=== PATIENT | male | born 1965 | race Caucasian/White ===

== ENCOUNTER 2018-10-14 23:52 | Emergency (ER) | payer MEDICARE, MEDICAID ==
[~2018-10-14] VITALS: Wt 81.8 kg
[~2018-10-14 23:52] MED LIST: ATOR-2 PO; BEN50 PO; CLON-379 PO; DESO15CR24 TOP; FURO40TA4 PO; GABA300C16 PO; LISI40TA3 PO; NIFE30TA23 PO; TRAM50TA2 PO; ZOLP5TAB PO
[2018-10-15] MEDS ORDERED: HYDROmorphONE 1 MG/ML SYG IM STA (03:16)
[2018-10-15] MEDS ORDERED: ONDANSETRON (ODT) 4 MG TAB ODT STA (03:16)
--- NOTE | 2018-10-15 03:19 | ERD ---
ER Documentation Chief Complaint Chief Complaint R SIDED BODY PAIN X'S 2 DAYS; HX OF CVA- CHRONIC PAIN HPI This is a 53-year-old male with a history of a stroke leaving him with a right-sided deficit. He says since the stroke he has had chronic right arm and leg pain and he is here because of that pain and he has a left-sided headache for 2 days that is pounding. No new focal neurological complaints. Is also here because he does not have the money to buy his medication he needs refills on his losartan and nifedipine. No chest pain shortness of breath no speech or swallowing difficulty ROS All systems reviewed and are negative except as per history of present illness. Medications Home Meds Active Scripts Diphenhydramine Hcl* (Benadryl*) 50 Mg Cap, 50 MG PO Q6H PRN for ALLERGIC REACTION, #20 CAP Prov:ANYI ADAMS PA-C 05/26/15 Desonide (Desonide) 15 Gm Cream.gm., 1 APPLIC TOP BID for 5 Days Prov:ANYI ADAMS PA-C 05/26/15 Zolpidem Tartrate* (Ambien*) 5 Mg Tablet, 5 MG PO HS PRN for INSOMNIA, #20 TAB Prov:DONOVAN ALEJANDRE 04/23/15 Clonidine Hcl* (Clonidine Hcl*) 0.1 Mg Tab, 0.1 MG PO Q4H PRN for sbp>160, #30 TAB Prov:DONOVAN ALEJANDRE 04/23/15 Reported Medications Tramadol HCl (Tramadol HCl) 50 Mg Tab, 50 MG PO Q6H PRN for PAIN, TAB 04/21/15 Furosemide* (Furosemide*) 40 Mg Tablet, 40 MG PO QAM, TAB 04/21/15 Nifedipine* (Nifedipine ER*) 30 Mg Tablet.sa, 30 MG PO DAILY, TAB.SA 04/21/15 Lisinopril* (Lisinopril*) 40 Mg Tablet, 40 MG PO DAILY, TAB 04/21/15 Atorvastatin* (Atorvastatin*) 80 Mg Tablet, 80 MG PO HS, TAB 04/21/15 Gabapentin* (Gabapentin*) 300 Mg Capsule, 300 MG PO TID, CAP 04/21/15 Allergies Allergies: Coded Allergies: No Known Allergy (Unverified , 05/17/15) PMhx/Soc History of Surgery: No Anesthesia Reaction: No (NKDA) Hx Neurological Disorder: Yes (CVA w/ R side deficits ) Hx Respiratory Disorders: No Hx Cardiac Disorders: Yes (HTN) Hx Psychiatric Problems: No Hx Miscellaneous Medical Probl: Yes (L hemorrahgic stroke, R sided weaknes,htn,high cholesterol) Hx Alcohol Use: No Hx Substance Use: No Hx Tobacco Use: No FmHx Family History: No coronary disease Physical Exam Vitals Vital Signs Date Temp Pulse Resp B/P (MAP) Pulse Ox O2 O2 Flow FiO2 Time Delivery Rate 10/15/18 97.4 64 16 154/86 99 Room Air 03:09 (108) 10/14/18 97.2 65 18 166/86 98 23:59 (112) Physical Exam Const: Well-developed, well-nourished Head: Atraumatic, normocephalic Eyes: Normal Conjunctiva, PERRLA, EOMI, normal sclera, no nystagmus ENT: Normal External Ears, Nose and Mouth, moist mucus membranes. Neck: Full range of motion. No meningismus, no lymphadenopathy. Resp: Clear to auscultation bilaterally, no wheezing, rhonchi, rales Cardio: Regular rate and rhythm, no murmurs, S1 S2 present Abd: Soft, non tender x 4, non distended. Normal bowel sounds, no guarding or rebound, no pulsitile abdominal masses or bruits Skin: No petechiae or rashes, no ecchymosis , no maculopapular rash Back: No midline or flank tenderness Ext: No cyanosis, or edema, FROM x 4, normal inspection, neurovascularly intact x 4 Neur: Awake and alert, right-sided deficit arm and leg weakness 3 out of 5, cerebellum intact Psych: Normal Mood and Affect Results 24 hrs Current Medications Medications Dose Sig/Ramon Start Time Status Last (Trade) Ordered Route PRN Stop Time Admin Dose Reason Admin 1 mg ONCE STAT 10/15/18 DC 10/15/18 Hydromorphone IM 03:16 03:23 HCl 10/15/18 03:18 (Dilaudid) Ondansetron 4 mg ONCE STAT 10/15/18 DC 10/15/18 HCl (Zofran ODT 03:16 03:24 Odt) 10/15/18 03:18 Procedures/MDM Ordering MD: JIM SHERMAN DO Location: E/R Room/Bed: PROCEDURE: CT BRAIN CLINICAL INDICATION: Headache TECHNIQUE: Contiguous axial imaging was performed from the skull base to the vertex without contrast. Coronal and sagittal reformatting was utilized. DICOM images are available. CTDIvol: 39.64 mGy mGy. Total Exam DLP: 634.23 mGy.cm mGy-cm. This CT exam was performed using one or more of the following dose reduction techniques: Automated exposure control, adjustment of the mA and/or kV according to patient size, use of iterative reconstruction technique. COMPARISON: None. FINDINGS: PARENCHYMA: There is prominence of the ventricles and sulci likely reflecting age related involutional changes. Mild to moderate white matter hypodense changes are present likely reflecting microvascular disease. Right basal ganglia and left thalamic lacunar infarcts are noted. EXTRA-AXIAL SPACE: No hemorrhage is seen. VASCULATURE: Slight atherosclerotic calcifications are present. OSSEOUS STRUCTURES: Calvarium is intact. VISUALIZED PARANASAL SINUSES/MASTOID AIR CELLS: Slight bilateral maxillary sinus mucosal thickening is noted. VISUALIZED ORBITAL CONTENTS: Preserved. IMPRESSION: 1. No acute intracranial abnormalities. RPTAT:HGST Fiona Abel Physician Date Time Electronically viewed and signed by Fiona Abel Physician on 10/15/2018 04:29 GT/ CC: JIM SHERMAN DO [id number] Patient's head CT is negative he is feeling better with his pain. The patient's pain is chronic in nature not discharge him home with some pain meds as well as medication refills for his blood pressure Departure Diagnosis: Primary Impression: Headache Headache type: unspecified Headache chronicity pattern: acute headache Intractability: not intractable Qualified Codes: R51 - Headache Additional Impressions: Chronic pain Chronic pain type: other chronic pain Qualified Codes: G89.29 - Other chronic pain Medication refill Condition: Stable JIM SHERMAN DO Oct 15, 2018 03:19
[2018-10-15] MEDS ORDERED: NIFE60TA18 PO (04:36)
[2018-10-15] MEDS ORDERED: LOSA100T15 PO (04:36)
[2018-10-15] MEDS ORDERED: HYDR-3980 PO (04:37)
[2018-10-15 05:16] VITALS: BP 111/65; PULSE 63; RESP 14
== END 2018-10-15 05:27 | disposition home or self-care (01) ==
LOC: E/R 23:52
DX: R51 Headache (principal); G89.29 Other chronic pain; I10 Essential (primary) hypertension; Z76.0 Encounter for issue of repeat prescription; Z86.73 Personal history of transient ischemic attack (TIA), and cerebral infarction without residual deficits
CPT/HCPCS: 70450; 96372; 99285; J1170

== ENCOUNTER 2018-11-09 12:20 | Emergency (ER) | payer MEDICARE, MEDICAID ==
[~2018-11-09] VITALS: Wt 90.0 kg
[~2018-11-09 12:20] MED LIST changes: +HYDR-3980 PO; +LOSA100T15 PO; +NIFE60TA18 PO
[2018-11-09 12:23] VITALS: BP 139/79; PULSE 70; RESP 18
[2018-11-09] MEDS ORDERED: ONDANSETRON (ODT) 4 MG TAB ODT STA (14:01)
[2018-11-09] MEDS ORDERED: KETOROLAC 60 MG INJ IM STA (14:01)
[2018-11-09] MEDS ORDERED: D-ME473S2 PO (14:55)
[2018-11-09] MEDS ORDERED: AZIT250T PO (14:55)
[2018-11-09] MEDS ORDERED: IBUP-1542 PO (14:55)
--- NOTE | 2018-11-09 14:57 | ERD ---
ER Documentation Chief Complaint Chief Complaint fever body pain and sore throat for the past 4 days. HPI 53-year-old male presents with fever and body aches and productive cough for last 4 days. He has right-sided chest wall pain. Denies vomiting or abdominal pain. Patient has a history of CVA 5 years ago with right hemiparesis. ROS All systems reviewed and are negative except as per history of present illness. Medications Home Meds Active Scripts Dextromethorphan Hb-Promethazine Hcl* (Promethazine DM* Syrup) 473 Ml Syrup, 5 ML PO Q6 PRN for COUGH for 5 Days, ML Prov:YAMILETH MANTILLA MD 11/09/18 Ibuprofen* (Motrin*) 600 Mg Tab, 600 MG PO Q6, #15 TAB Prov:YAMILETH MANTILLA MD 11/09/18 Azithromycin* (Zithromax*) 250 Mg Tablet, 250 MG PO .ZPACK DIRECTED, #6 TAB TAKE 500 MG (2 TABS) THE FIRST DAY THEN 250 MG (1 TAB) DAYS 2-5 Prov:YAMILETH MANTILLA MD 11/09/18 Hydrocodone/Acetaminophen ([place] 10-325 Tablet) 1 Each Tablet, 1 TAB PO Q6H PRN for PAIN, #7 TAB Prov:JIM SHERMAN DO 10/15/18 Nifedipine* (Nifedipine ER*) 60 Mg Tablet.sa, 60 MG PO DAILY, #30 TAB.SA Prov:JIM SHERMAN DO 10/15/18 Losartan Potassium* (Losartan Potassium*) 100 Mg Tablet, 100 MG PO DAILY, #30 TAB Prov:JIM SHERMAN DO 10/15/18 Diphenhydramine Hcl* (Benadryl*) 50 Mg Cap, 50 MG PO Q6H PRN for ALLERGIC REACTION, #20 CAP Prov:ANYI ADAMS PA-C 05/26/15 Desonide (Desonide) 15 Gm Cream.gm., 1 APPLIC TOP BID for 5 Days Prov:ANYI ADAMS PA-C 05/26/15 Zolpidem Tartrate* (Ambien*) 5 Mg Tablet, 5 MG PO HS PRN for INSOMNIA, #20 TAB Prov:DONOVAN ALEJANDRE 04/23/15 Clonidine Hcl* (Clonidine Hcl*) 0.1 Mg Tab, 0.1 MG PO Q4H PRN for sbp>160, #30 TAB Prov:DONOVAN ALEJANDRE 04/23/15 Reported Medications Tramadol HCl (Tramadol HCl) 50 Mg Tab, 50 MG PO Q6H PRN for PAIN, TAB 04/21/15 Furosemide* (Furosemide*) 40 Mg Tablet, 40 MG PO QAM, TAB 04/21/15 Nifedipine* (Nifedipine ER*) 30 Mg Tablet.sa, 30 MG PO DAILY, TAB.SA 04/21/15 Lisinopril* (Lisinopril*) 40 Mg Tablet, 40 MG PO DAILY, TAB 04/21/15 Atorvastatin* (Atorvastatin*) 80 Mg Tablet, 80 MG PO HS, TAB 04/21/15 Gabapentin* (Gabapentin*) 300 Mg Capsule, 300 MG PO TID, CAP 04/21/15 Allergies Allergies: Coded Allergies: No Known Allergy (Unverified , 11/09/18) PMhx/Soc History of Surgery: No Anesthesia Reaction: No Hx Neurological Disorder: Yes (CVA w/ R side deficits ) Hx Respiratory Disorders: No Hx Cardiac Disorders: Yes (HTN) Hx Psychiatric Problems: No Hx Miscellaneous Medical Probl: Yes (L hemorrahgic stroke, R sided weaknes,high cholesterol) Hx Alcohol Use: No Hx Substance Use: No Hx Tobacco Use: No Physical Exam Vitals Vital Signs Date Temp Pulse Resp B/P (MAP) Pulse Ox O2 O2 Flow FiO2 Time Delivery Rate 11/09/18 98.2 70 18 139/79 98 12:23 (99) Physical Exam Const: No acute distress Head: Atraumatic Eyes: Normal Conjunctiva ENT: Normal External Ears, Nose and Mouth. TMs and oropharynx normal. Neck: Full range of motion. No meningismus. Resp: Clear to auscultation bilaterally rhonchi without rales, wheezing appreciated. Cardio: Regular rate and rhythm, no murmurs Abd: Soft, non tender, non distended. Normal bowel sounds Skin: No petechiae or rashes Back: No midline or flank tenderness Ext: No cyanosis, or edema Neur: Awake and alert. baseline right hemiparesis. Psych: Normal Mood and Affect Results 24 hrs Current Medications Medications Dose Sig/Ramon Start Time Status Last (Trade) Ordered Route PRN Stop Time Admin Dose Reason Admin Ondansetron 8 mg ONCE STAT 11/09/18 DC 11/09/18 HCl (Zofran ODT 14:01 14:10 Odt) 11/09/18 14:03 Ketorolac 60 mg ONCE STAT 11/09/18 DC 11/09/18 Tromethamine IM 14:01 14:11 (Toradol) 11/09/18 14:03 Procedures/MDM Patient appears uncomfortable due to presumed general malaise. Patient is given Toradol IM. Chest X-ray 1V Interpreted by me: Soft Tissue: No acute abnormalities Bones: No acute abnormalities Mediastinum/Cardiac Silhouette/Lungs: No acute abnormalities There was a swab negative. Patient presents with fever and URI symptoms and productive cough. Is no evidence of hypoxemia, rest or stress, signs of pneumonia, abdominal tenderness, additional concerning symptoms symptoms. He may be a flu type illness despite negative flu test. Given productive cough and duration we will treat with Zithromax, promethazine, ibuprofen, primary care follow-up and return precautions. The patient was stable with no new complaints during the ER course. Clinically, there is no current evidence to suggest meningitis, sepsis, acute abdomen, pneumonia, stroke, acute coronary syndrome, pulmonary embolism, aortic dissection or any other emergent condition appearing to require further evaluation or hospitalization. Patient counseled regarding my diagnostic impression and care plan. Prior to discharge all questions answered. Pt agrees with treatment plan and understands strict return precaution s. Pt is instructed to follow up with primary care provider within 24-48 hours. Precautionary instructions provided including instructions to return to the ER if not improving or for any worsening or changing symptoms or concerns. Departure Diagnosis: Primary Impression: URI, acute Additional Impression: Fever Fever type: unspecified Qualified Codes: R50.9 - Fever, unspecified Condition: Stable Patient Instructions: Fever Control (Adult) Additional Instructions: X-ray and flu test negative. Will treat for bronchitis. Recheck for vomiting, abdominal pain, new worsening symptoms. See primary doctor this week for follow-up. YAMILETH MANTILLA MD Nov 09, 2018 14:57
== END 2018-11-09 15:04 | disposition home or self-care (01) ==
LOC: FTE 12:20
DX: J06.9 Acute upper respiratory infection, unspecified (principal); I10 Essential (primary) hypertension; Z86.73 Personal history of transient ischemic attack (TIA), and cerebral infarction without residual deficits
CPT/HCPCS: 71045; 87400; 96372; 99284; J1885

== ENCOUNTER 2018-12-23 08:10 | Emergency (ER) | payer MEDICARE, MEDICAID ==
[~2018-12-23] VITALS: Ht 170.2 cm; Wt 90.0 kg
[~2018-12-23 08:10] MED LIST changes: +AZIT250T PO; +D-ME473S2 PO; +IBUP-1542 PO
[2018-12-23 08:12] VITALS: Ht 170.2 cm; Wt 90.0 kg
[2018-12-23] MEDS ORDERED: NAPR-985 PO (09:43)
[2018-12-23] MEDS ORDERED: HYDR-4011 PO (09:43)
[2018-12-23 10:15] VITALS: BP 152/78; PULSE 71; RESP 18
--- NOTE | 2018-12-23 11:16 | ERD ---
ER Documentation Chief Complaint Chief Complaint back pain due to fall HPI 53-year-old male presenting with back pain after a fall 2 days ago. Patient states that he fell from his chair. He had a stroke 5 years ago and is right- sided hemiparalysis. He denies any numbness or tingling. He denies any changes to urination or bowel movement. His pain is worse with movement. He has pain in the sacral coccyx region. Denies any other medical problems. NKDA. Surgical history denies. Social history denies ROS All systems reviewed and are negative except as per history of present illness. Medications Home Meds Active Scripts Naproxen* (Naprosyn*) 500 Mg Tablet, 500 MG PO BID PRN for PAIN AND/OR INFLAMMATION, #30 TAB Prov:YULIET BRYANT PA-C 12/23/18 Hydrocodone/Acetaminophen ([place] 5-325 Tablet) 1 Each Tablet, 1 TAB PO Q6H PRN for PAIN, #7 TAB Prov:YULIET BRYANT PA-C 12/23/18 Dextromethorphan Hb-Promethazine Hcl* (Promethazine DM* Syrup) 473 Ml Syrup, 5 ML PO Q6 PRN for COUGH for 5 Days, ML Prov:YAMILETH MANTILLA MD 11/09/18 Ibuprofen* (Motrin*) 600 Mg Tab, 600 MG PO Q6, #15 TAB Prov:YAMILETH MANTILLA MD 11/09/18 Azithromycin* (Zithromax*) 250 Mg Tablet, 250 MG PO .IVETTECK DIRECTED, #6 TAB TAKE 500 MG (2 TABS) THE FIRST DAY THEN 250 MG (1 TAB) DAYS 2-5 Prov:YAMILETH MANTILLA MD 11/09/18 Hydrocodone/Acetaminophen ([place] 10-325 Tablet) 1 Each Tablet, 1 TAB PO Q6H PRN for PAIN, #7 TAB Prov:JIM SHERMAN DO 10/15/18 Nifedipine* (Nifedipine ER*) 60 Mg Tablet.sa, 60 MG PO DAILY, #30 TAB.SA Prov:JIM SHERMAN DO 10/15/18 Losartan Potassium* (Losartan Potassium*) 100 Mg Tablet, 100 MG PO DAILY, #30 TAB Prov:LEJIM SHAH DO 10/15/18 Diphenhydramine Hcl* (Benadryl*) 50 Mg Cap, 50 MG PO Q6H PRN for ALLERGIC REACTION, #20 CAP Prov:ANYI ADAMS PA-C 05/26/15 Desonide (Desonide) 15 Gm Cream.gm., 1 APPLIC TOP BID for 5 Days Prov:ANYI ADAMS PA-C 05/26/15 Zolpidem Tartrate* (Ambien*) 5 Mg Tablet, 5 MG PO HS PRN for INSOMNIA, #20 TAB Prov:DONOVAN ALEJANDRE 04/23/15 Clonidine Hcl* (Clonidine Hcl*) 0.1 Mg Tab, 0.1 MG PO Q4H PRN for sbp>160, #30 TAB Prov:DONOVAN ALEJANDRE 04/23/15 Reported Medications Tramadol HCl (Tramadol HCl) 50 Mg Tab, 50 MG PO Q6H PRN for PAIN, TAB 04/21/15 Furosemide* (Furosemide*) 40 Mg Tablet, 40 MG PO QAM, TAB 04/21/15 Nifedipine* (Nifedipine ER*) 30 Mg Tablet.sa, 30 MG PO DAILY, TAB.SA 04/21/15 Lisinopril* (Lisinopril*) 40 Mg Tablet, 40 MG PO DAILY, TAB 04/21/15 Atorvastatin* (Atorvastatin*) 80 Mg Tablet, 80 MG PO HS, TAB 04/21/15 Gabapentin* (Gabapentin*) 300 Mg Capsule, 300 MG PO TID, CAP 04/21/15 Allergies Allergies: Coded Allergies: No Known Allergy (Unverified , 12/23/18) PMhx/Soc History of Surgery: No Anesthesia Reaction: No Hx Neurological Disorder: Yes (CVA w/ R side deficits ) Hx Respiratory Disorders: No Hx Cardiac Disorders: Yes (HTN) Hx Psychiatric Problems: No Hx Miscellaneous Medical Probl: Yes (L hemorrahgic stroke, R sided weaknes,high cholesterol) Hx Alcohol Use: No Hx Substance Use: No Hx Tobacco Use: No FmHx Family History: No diabetes, No coronary disease, No other Physical Exam Vitals Vital Signs Date Temp Pulse Resp B/P (MAP) Pulse Ox O2 O2 Flow FiO2 Time Delivery Rate 12/23/18 98.7 71 18 152/78 97 Room Air 10:15 (102) 12/23/18 98.9 76 19 177/99 97 08:12 (125) Physical Exam GENERAL: The patient is well-appearing, well-nourished, in no acute distress NECK: No midline cervical tenderness. CHEST: Clear to auscultation bilaterally. There are no rales, wheezes or rhonchi. HEART: Regular rate and rhythm. No murmurs, clicks, rubs or gallops. No S3 or S4. ABDOMEN:Soft, nontender and nondistended. Good bowel sounds. No rebound or guarding. No gross peritonitis. No gross organomegaly or masses. BACK: No midline or flank tenderness. Tender to palpation over the coccyx. EXTREMITIES: Equal pulses bilaterally. There is no peripheral clubbing, cyanosis or edema. No focal swelling or erythema. Full range of motion. Grossly neurovascularly intact. NEUROLOGIC: Alert and oriented. Cranial nerves II through XII intact. Motor strength in all 4 extremities with 5 out of 5 strength. Sensation grossly intact. Normal speech and gait. SKIN: There is no apparent rash or petechiae. The skin is warm and dry. HEMATOLOGIC AND LYMPHATIC: There is no evidence of excessive bruising or lymphadenopathy. Procedures/MDM DIAGNOSTIC IMAGING REPORT Patient: DAVE MOONEY : 1965 Age: 53 Sex: M MR #: [id number] DOS: 12/23/18 0823 Ordering MD: MORAIMA BRYANT PA-C Location: [facility] Room/Bed: PROCEDURE: XR Cervical Spine. CLINICAL INDICATION: Neck pain. TECHNIQUE: 3 views of the cervical spine were obtained. COMPARISON: None. FINDINGS: C7 and the cervicothoracic junction are not seen on the lateral view due to shoulder artifact. Alignment of the cervical spine is normal. Vertebral body heights are maintained. There is mild intervertebral disc space narrowing at C2- C3 through C5-C6. C6-C7 intervertebral disc space is not well seen. Prevertebral soft tissues are unremarkable. IMPRESSION: 1. Multilevel degenerative changes of the cervical spine as above. DIAGNOSTIC IMAGING REPORT Patient: DAVE MOONEY : 1965 Age: 53 Sex: M MR #: [id number] DOS: 12/23/18 0823 Ordering MD: MORAIMA BRYANT PA-C Location: [facility] Room/Bed: PROCEDURE: Sacrum and coccyx x-ray CLINICAL INDICATION: Pain TECHNIQUE: 3 views of the sacrum and coccyx were obtained. COMPARISON: No prior exam FINDINGS: The sacrum is partially obscured by overlying bowel gas. The bone mineralization is decreased. The sacroiliac joints are symmetric. There are mild degenerative changes along the sacroiliac joints. The superior part of the sacroiliac joints is suboptimally visualized, given the projection. There are mild degenerative changes of bilateral hip joints and moderate degenerative changes of pubic symphysis. No acute fracture is seen. IMPRESSION: No acute osseous abnormality identified. Symmetric appearance of the sacroiliac joints which are suboptimally visualized on this examination. The superior part of the sacroiliac joints are not well visualized. Recommend oblique view of the sacroiliac joints. MDM: 53-year-old male presenting with back pain. I have low suspicion for acute fracture dislocation. Patient likely has strain and spasm secondary to incident. I do not feel that further work-up is indicated. Patient is discharged with strict ER precautions and told to follow-up with primary care within 1 to 2 days for close evaluation. Patient is told symptoms change or worsen to return to the ER. Patient is discharged with supportive medications. All questions answered at discharge Departure Diagnosis: Primary Impression: Back pain Condition: Stable Patient Instructions: Back Pain (Acute Or Chronic) Referrals: [facility] YOU HAVE RECEIVED A MEDICAL SCREENING EXAM AND THE RESULTS INDICATE THAT YOU DO NOT HAVE A CONDITION THAT REQUIRES URGENT TREATMENT IN THE EMERGENCY DEPARTMENT. FURTHER EVALUATION AND TREATMENT OF YOUR CONDITION CAN WAIT UNTIL YOU ARE SEEN IN YOUR DOCTORS OFFICE WITHIN THE NEXT 1-2 DAYS. IT IS YOUR RESPONSIBILITY TO MAKE AN APPOINTMENT FOR FOLOW-UP CARE. IF YOU HAVE A PRIMARY DOCTOR --you should call your primary doctor and schedule an appointment IF YOU DO NOT HAVE A PRIMARY DOCTOR YOU CAN CALL OUR PHYSICIAN REFERRAL HOTLINE AT IF YOU CAN NOT AFFORD TO SEE A PHYSICIAN YOU CAN CHOSE FROM THE FOLLOWING [facility] [address] [facility] [address] [facility]. [facility] [address] [facility]. [facility] [address] [facility]. [facility] [address] [facility]. [facility] [address] Additional Instructions: FOLLOW UP WITH YOUR PRIMARY CARE PHYSICIAN TOMORROW.Return to this facility if you are not improving as expected. YULIET BRYANT PA-C December 23, 2018 11:16
== END 2018-12-23 10:18 | disposition home or self-care (01) ==
LOC: FTE 08:10
DX: M54.9 Dorsalgia, unspecified (principal); I10 Essential (primary) hypertension; Z86.73 Personal history of transient ischemic attack (TIA), and cerebral infarction without residual deficits
CPT/HCPCS: 72040; 72220